=== PATIENT | female | born 1970 | race Caucasian/White ===

== ENCOUNTER 2017-02-02 20:32 | Observation (INO) | payer OTHER ==
[2017-02-03] MEDS ORDERED: ZESTRIL10 MG PO (13:10)
[2017-02-03] MEDS ORDERED: ALLEGRA ALLERG180 MG PO (13:10)
[2017-02-03] MEDS ORDERED: PREMARIN0.3 MG PO (13:10)
[2017-02-03] MEDS ORDERED: ATIVAN0.5 MG PO (13:11)
[2017-02-03] MEDS ORDERED: MOBIC15 MG PO (13:11)
[2017-02-03] MEDS ORDERED: NORCO 5-325 TA1 EACH PO (13:11)
[2017-02-03] MEDS ORDERED: ORPHENADRINE C100 MG PO (13:12)
[2017-02-03] MEDS ORDERED: ZOFRAN4 MG PO (13:13)
[2017-02-03] MEDS ORDERED: CIPRO500 MG PO (13:13)
[2017-02-03] MEDS ORDERED: PHENERGAN25 M1 PO (13:14)
[2017-02-03] MEDS ORDERED: PYRIDIUM100 MG PO (13:14)
[2017-02-03] MEDS ORDERED: VALIUM10 MG PO (13:15)
[2017-02-03] MEDS ORDERED: NORCO 10-325 T1 EACH PO (13:15)
[2017-02-03] MEDS ORDERED: ZOFRAN8 MG PO (13:16)
== END 2017-02-03 12:45 | disposition home or self-care (01) ==
LOC: MED 20:32
PROVIDERS: ADMIT Urology
DX: N13.2 Hydronephrosis with renal and ureteral calculous obstruction (principal); G43.909 Migraine, unspecified, not intractable, without status migrainosus; Z90.49 Acquired absence of other specified parts of digestive tract; Z91.041 Radiographic dye allergy status; Z88.8 Allergy status to other drugs, medicaments and biological substances
CPT/HCPCS: 96365; 96366; 96374; 96375; C1894; C2617; G0378; J1885; J2704; J2765; Q9967